=== PATIENT | female | born 1985 | race Caucasian/White ===

== ENCOUNTER 2022-10-28 18:11 | Emergency (ER) | payer OTHER, SELFPAY ==
[2022-10-28 18:33] VITALS: BP 142/94; PULSE 85; RESP 18; TEMP 36.7; O2SAT 99; BMI 21.8
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
[2022-10-28] MEDS: 0.9 % SODIUM CHLORIDE 1000 ml 1,000 ML IV (19:21)
[2022-10-28 20:34] VITALS: BP 127/74; PULSE 78; RESP 18; TEMP 36.3; O2SAT 98
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
== END 2022-10-28 20:37 | disposition home or self-care (01) ==
PROVIDERS: Emergency Provider Family Medicine
DX: M54.2 Cervicalgia (principal); Y04.2XXA Assault by strike against or bumped into by another person, initial encounter
CPT/HCPCS: 70491; 99283; 99284; J7030; Q9967

== ENCOUNTER 2022-12-12 16:19 | Outpatient (CLI) | payer BC, SELFPAY ==
[2022-12-12 21:59] LABS: Chloride* 103 mmol/L (96-114); Potassium* 4.6 mmol/L (3.6-5.1); Sodium* 139 mmol/L (135-149)
[2022-12-12 22:02] LABS: Creatinine* 0.8 mg/dL (0.5-1.5); Estimated Glomerular Filt Rate 97 ml/min
[2022-12-12 22:03] LABS: Blood Urea Nitrogen* 21 mg/dL (5-24); Calcium* 9.7 mg/dL (8.4-10.6); Carbon Dioxide* 30 mmol/L (20-32); Glucose* 100 mg/dL (60-115)
== END 2022-12-12 16:20 | disposition home or self-care (01) ==
PROVIDERS: Visit Provider Emergency Medicine
DX: F41.8 Other specified anxiety disorders (principal); R25.3 Fasciculation
CPT/HCPCS: 80048; 84443

== ENCOUNTER 2024-12-21 17:31 | Outpatient (CLI) | payer BC, OTHER, SELFPAY ==
[2024-12-24 09:15] LABS: HPV Source Cervix; HPV, High Risk by TMA Not Detected
== END 2024-12-21 17:32 | disposition home or self-care (01) ==
PROVIDERS: Visit Provider Registered Nurse
DX: N93.9 Abnormal uterine and vaginal bleeding, unspecified (principal); Z12.4 Encounter for screening for malignant neoplasm of cervix
CPT/HCPCS: 84443; 87624; 87625; 88141; 88142